=== PATIENT | female | born 1995 | race Caucasian/White ===

== ENCOUNTER 2019-12-08 17:33 | Emergency (ER) | payer OTHER, SELFPAY ==
--- NOTE | ~2019-12-08 | US_ITS ---
EXAMINATION: US OB <=14 wk fetus w TV DATE: 12/08/2019 19:15 INDICATION: Vaginal bleeding TECHNIQUE: Real-time transabdominal and transvaginal obstetric ultrasound. FINDINGS: No prior studies for comparison. The uterus measures 7.9 x 4.4 x 5.2 cm.. No intrauterine gestational sac or pole identified. En dometrium measures 8 mm. Ovaries are within normal limits without significant solid or cystic mass. N o free fluid in the pelvis. IMPRESSION: 1. Unremarkable pelvic ultrasound. No evidence for intrauterine . Differential diagnosis inc ludes very early intrauterine , ectopic and failed . Recommend follow-up with serial quantitative beta-hCG levels and ultrasound as clinically indicated. Reviewed, dictated and finalized at location [facility]. IMPRESSION: 1. Unremarkable pelvic ultrasound. No evidence for intrauterine . Diff erential diagnosis includes very early intrauterine , ectopic pregnanc y and failed . Recommend follow-up with serial quantitative beta-hCG l evels and ultrasound as clinically indicated.
[2019-12-08 17:35] VITALS: BP 125/56; PULSE 71; RESP 18; TEMP 37; O2SAT 100
--- NOTE | 2019-12-08 17:57 | ED.FEMALEGU ---
HPI - Female Genitourinary General Chief complaint: Vaginal Bleeding <Gumaro Beasley MD - Last Filed: 12/08/19 18:06> Stated complaint: 5 weeks preg, bleeding <Gumaro Beasley MD - Last Filed: 12/08/19 18:06> Time Seen by Provider: 12/08/19 17:48 <Gumaro Beasley MD - Last Filed: 12/08/19 18:06> History of Present Illness HPI Narrative: female at 5 1/2 weeks gestation by LMP presents c/o vaginal bleeding. She reports a small amount of dark red blood from the vagina. She has not required a pad. She also has moderate pelvic cramping. She has not had an OB appointment or US yet this . <Gumaro Beasley MD - Last Filed: 12/08/19 18:06> Related Data Home medications: Home Medications Medication Instructions Recorded Confirmed No Home Medications 12/08/19 12/08/19 <Gumaro Beasley MD - Last Filed: 12/08/19 18:06> Allergies/Adverse reactions: Allergies Allergy/AdvReac Type Severity Reaction Status Date / Time ciprofloxacin [From Cipro] Allergy Swelling Verified 12/08/19 17:42 of Lip/Tongue/Throat Penicillins Allergy Hives Verified 12/08/19 17:42 <Gumaro Beasley MD - Last Filed: 12/08/19 18:06> Review of Systems Review of Systems: All systems reviewed & are unremarkable except as noted in HPI and below <Gumaro Beasley MD - Last Filed: 12/08/19 18:06> Cardiovascular: Cardiovascular: Denies chest pain <Gumaro Beasley MD - Last Filed: 12/08/19 18:06> Respiratory: Respiratory: Denies dyspnea <Gumaro Beasley MD - Last Filed: 12/08/19 18:06> Gastrointestinal: Gastrointestinal: Reports abdominal pain, Denies constipation, Denies diarrhea, Denies nausea and Denies vomiting <Gumaro Beasley MD - Last Filed: 12/08/19 18:06> Genitourinary: Genitourinary: Reports abnormal vaginal bleeding and Denies dysuria <Gumaro Beasley MD - Last Filed: 12/08/19 18:06> Musculoskeletal: Musculoskeletal: Denies back pain <Gumaro Beasley MD - Last Filed: 12/08/19 18:06> Neurologic: Denies dizziness <Gumaro Beasley MD - Last Filed: 12/08/19 18:06> [facility] Social History Social History: Social History Gender identity (if verbalized by the patient): Female <Gumaro Beasley MD - Last Filed: 12/08/19 18:06> Exam Const: General: healthy appearing, no acute distress and alert <Gumaro Beasley MD - Last Filed: 12/08/19 18:06> Orientation/consciousness: patient oriented x3 <Gumaro Beasley MD - Last Filed: 12/08/19 18:06> HENMT: Head: normal to inspection <Gumaro Beasley MD - Last Filed: 12/08/19 18:06> Neck: Neck: normal visual inspection and no lymphadenopathy <Gumaro Beasley MD - Last Filed: 12/08/19 18:06> Chest: Chest palpation & inspection: no tenderness <Gumaro Beasley MD - Last Filed: 12/08/19 18:06> Resp: Effort & Inspection: normal respiratory effort <Gumaro Beasley MD - Last Filed: 12/08/19 18:06> Auscultation: clear to auscultation bilaterally, no rales, no rhonchi and no wheezes <Gumaro Beasley MD - Last Filed: 12/08/19 18:06> Cardio: Jugular venous distension: no JVD <Gumaro Beasley MD - Last Filed: 12/08/19 18:06> Rate: regular rate <Gumaro Beasley MD - Last Filed: 12/08/19 18:06> Rhythm: regular rhythm <Gumaro Beasley MD - Last Filed: 12/08/19 18:06> Heart sounds: no murmurs <Gumaro Beasley MD - Last Filed: 12/08/19 18:06> GI: Inspection: non-distended <Gumaro Beasley MD - Last Filed: 12/08/19 18:06> GI Palp: Yes Soft to palpation and Yes Tenderness to palpation present (GI) (suprapubic tenderness) <Gumaro Beasley MD - Last Filed: 12/08/19 18:06> Skin: General skin exam: normal color <Gumaro Beasley MD - Last Filed: 12/08/19 18:06> Neuro: General: patient oriented x3 and moves all extremities <Gumaro Beasley MD - Last Filed: 12/08/19 18:06
[2019-12-08 18:34] LABS: Basophils Percent Auto 0.3 % (0.2-1.2); Eosinophils Absolute Auto 0.2 K/mm3 (0-0.3); Eosinophils Percent Auto 2.7 % (0-4.4); Hematocrit 35.8 % (37.0-47.0); Hemoglobin 12.1 g/dL (12.0-15.0); Immature Granulocyte Absolute 0.01 K/mm3 (0.00-0.031); Immature Granulocyte Percent A 0.1 % (0-0.5); Lymphocytes Absolute Auto 2.25 K/mm3 (0.9-3.2); Lymphocytes Percent Auto 33.7 % (18.3-44.2); Mean Corpuscular HGB Conc 33.8 g/dl (32-36); Mean Corpuscular Hemoglobin 28.6 pg (26-34); Mean Corpuscular Volume 84.6 fl (80-100); Mean Platelet Volume 11.6 fl (7.4-10.4); Monocytes Absolute Auto 0.4 K/mm3 (0.1-0.6); Monocytes Percent Auto 6.1 % (2.6-8.5); Neutrophils Absolute Auto 3.8 K/mm3 (1.3-6.7); Neutrophils Percent Auto 57.1 % (45.5-73.1); Platelet Count Result 189 k/mm3 (150-375); Red Blood Count 4.23 M/mm3 (4.2-5.4); Red Cell Distribution Width 13.5 % (11.5-14.5); White Blood Count 6.7 K/mm3 (4.5-10.0)
[2019-12-08 18:46] LABS: Alanine Aminotransferase 22 U/L (4-35); Albumin Level 4.2 g/dL (3.5-5.1); Alkaline Phosphatase 39 U/L (38-126); Anion Gap 13.6 mmol/L (7-16); Aspartate Amino Transferase 27 U/L (14-36); Bilirubin,Total 0.1 mg/dL (0.2-1.3); Calcium 8.9 mg/dL (8.4-10.2); Carbon Dioxide 23 mmol/L (22-30); Chloride 107 mmol/L (98-107); Estimated CRCL calculation 88 ml/min; Estimated Glomerular Filt Rate > 60; Glucose 97 mg/dL (65-105); Potassium 3.6 mmol/L (3.4-5.0); Sodium 140 mmol/L (137-145)
[2019-12-08 18:53] LABS: Add Urine Microscopic? YES; Appearance Urine Clear (Clear); Bilirubin Urine Negative (Negative); Blood Urine 1+ (Negative); Color Urine Colorless (Yellow); Glucose Urine UA Negative (Negative); Ketones Urine Negative (Negative); Leukocyte Esterase Ur Negative LEU/UL (Negative); Nitrate Urine Negative (Negative); Protein Urine Negative (Negative); RBC Urine 0-2 /hpf (0-2); Squamous Epithelial Cell Urine Rare /hpf (Few); Urobilinogen Urine Negative mg/dL (<2.0)
[2019-12-08 18:54] LABS: Specific Grav Ur 1.003 (1.001-1.035)
[2019-12-08 19:02] LABS: Beta HCG Quantitative 173.54 mIU/ML
--- NOTE | 2019-12-08 19:21 | PC.NURSE ---
Report received from NAKUL Sung. Assumed care of patient at this time.
[2019-12-08 19:32] LABS: Blood Urea Nitrogen < 2 mg/dL (7-17)
== END 2019-12-08 19:56 | disposition home or self-care (01) ==
PROVIDERS: Emergency Medicine; Emergency Provider Emergency Medicine
DX: O02.1 Missed abortion (principal)
CPT/HCPCS: 36415; 76801; 76817; 80053; 81001; 84702; 85025; 85461; 99284

== ENCOUNTER 2020-09-08 05:58 | Inpatient (IN) | payer OTHER, SELFPAY ==
[2020-09-08] VITALS (87 sets, daily range): BP systolic 82–132; BP diastolic 37–88; PULSE 57–118; RESP 18; TEMP 36.3–36.9; O2SAT 92–100; BMI 30.4
--- NOTE | 2020-09-08 06:28 | LDADM ---
This patient, Alysha Edge, was admitted to Labor/Delivery/Recovery 104 on 09/08/20 at 05:58. Plans for labor, pain management and were discussed with patient. Patient/family oriented to hospital policies and general routines including ID bracelet, bed and alarms, visiting hours, pain management, procedures, bathroom and other care routines, personal items, smoking policy, room service/diet and guest tray routines, security routines, call light, and visiting hours. Patient/Family are encouraged to report perceived risks to care and to ask questions if they do not understand what they are told or what they should do. See OBIX for further documentation.
[2020-09-08 07:07] LABS: Basophils Percent Auto 0.4 % (0.2-1.2); Eosinophils Absolute Auto 0.1 K/mm3 (0-0.3); Eosinophils Percent Auto 1.5 % (0-4.4); Hemoglobin 9.4 g/dL (12.0-15.0); Immature Granulocyte Absolute 0.04 K/mm3 (0.00-0.031); Immature Granulocyte Percent A 0.4 % (0-0.5); Lymphocytes Absolute Auto 2.36 K/mm3 (0.9-3.2); Lymphocytes Percent Auto 24.5 % (18.3-44.2); Mean Corpuscular HGB Conc 33.6 g/dl (32-36); Mean Corpuscular Hemoglobin 28.6 pg (26-34); Mean Corpuscular Volume 85.1 fl (80-100); Mean Platelet Volume 9.6 fl (7.4-10.4); Monocytes Absolute Auto 0.6 K/mm3 (0.1-0.6); Monocytes Percent Auto 6.2 % (2.6-8.5); Neutrophils Absolute Auto 6.5 K/mm3 (1.3-6.7); Platelet Count Result 215 k/mm3 (150-375); Red Blood Count 3.29 M/mm3 (4.2-5.4); Red Cell Distribution Width 14.3 % (11.5-14.5); White Blood Count 9.6 K/mm3 (4.5-10.0)
[2020-09-08] MEDS: OXYTOCIN 30 UNITS/NS 500 ML 30 UNITS/500 ML BAG IV CONT (07:15)
[2020-09-08] MEDS: LACTATED RINGERS 1,000 ML 125 ML IV CONT ×3 (07:15→15:03)
--- NOTE | 2020-09-08 07:25 | WPDHPUPDATE1 ---
History and Physical Update Update Date/Time: 09/08/20 07:25 25 yo at 39w0d who presents for elective IOL. Pt denies any regular contractions, leakage of fluid or vaginal bleeding. She endorses good movement. Her has been uncomplicated thus far. A/P 25 yo at 39w0d who presents for elective IOL admit to L&D routine admission orders Rh+ GBS neg cvx 1.5/50/-3 AROM for scant clear fluid FHT cat 1 Will augment with pitocin if necessary continuous EFM History and Physical has been reviewed, including an updated exam of the patient. There are NO changes in the patient's condition. Risks, benefits, and alternatives have been discussed and questions answered. Patient agrees to proceed with procedure.
[2020-09-08 07:56] LABS: HIV 1/2 Ab P24 Ag Result Negative (Negative)
--- NOTE | 2020-09-08 14:28 | WPDANESEPPF ---
Anes - Initial Pre Proc Eval Date/Time: 09/08/20 14:28 Surgeon: Samuel Mujica MD Pre Op Diagnosis: Induction of labor Patient Data Age: 25 Gender: F Height: 5 ft Weight: 70.7 kg Last Vital Signs Temp 36.8 C 09/08/20 11:55 Pulse 83 09/08/20 14:28 BP 98/47 L 09/08/20 14:28 Pulse Ox 98 09/08/20 14:28 Allergies Allergy/AdvReac Type Severity Reaction Status Date / Time ciprofloxacin [From Cipro] Allergy Swelling Verified 09/08/20 06:24 Penicillins Allergy Other Verified 09/08/20 06:24 Home Medications Medication Instructions Recorded Confirmed Type ferrous sulfate 325 mg PO DAILY 08/24/20 09/08/20 History Laboratory Tests 09/08/20 09/08/20 09/08/20 06:24 06:24 06:24 WBC 9.6 K/mm3 K/mm3 (4.5-10.0) RBC 3.29 M/mm3 L M/mm3 (4.2-5.4) Hgb 9.4 g/dL L g/dL (12.0-15.0) Hct 28.0 % L % (37.0-47.0) MCV 85.1 fl fl (80-100) MCH 28.6 pg pg (26-34) MCHC 33.6 g/dl g/dl (32-36) RDW 14.3 % % (11.5-14.5) Plt Count 215 k/mm3 k/mm3 (150-375) MPV 9.6 fl fl (7.4-10.4) Immature Gran % (Auto) 0.4 % % (0-0.5) Neut % (Auto) 67.0 % % (45.5-73.1) Lymph % (Auto) 24.5 % % (18.3-44.2) [place] % (Auto) 6.2 % % (2.6-8.5) Eos % (Auto) 1.5 % % (0-4.4) Baso % (Auto) 0.4 % % (0.2-1.2) Lymph # (Auto) 2.36 K/mm3 K/mm3 (0.9-3.2) [place] # (Auto) 0.6 K/mm3 K/mm3 (0.1-0.6) Eos # (Auto) 0.1 K/mm3 K/mm3 (0-0.3) Baso # (Auto) 0.0 K/mm3 K/mm3 (0.0-0.1) Abs Immat Gran (auto) 0.04 K/mm3 H K/mm3 (0.00-0.031) Absolute Neuts (auto) 6.5 K/mm3 K/mm3 (1.3-6.7) Absolute Nucleated RBC 0.0 K/mm3 K/mm3 (0.0-0.012) Nucleated RBC % 0.0 % % (0.0-0.2) RPR Pending HIV 1&2 Ab/P24 Ag 4thGn Negative (Negative) Blood Type Antibody Screen 09/08/20 06:24 WBC RBC Hgb Hct MCV MCH MCHC RDW Plt Count MPV Immature Gran % (Auto) Neut % (Auto) Lymph % (Auto) [place] % (Auto) Eos % (Auto) Baso % (Auto) Lymph # (Auto) [place] # (Auto) Eos # (Auto) Baso # (Auto) Abs Immat Gran (auto) Absolute Neuts (auto) Absolute Nucleated RBC Nucleated RBC % RPR HIV 1&2 Ab/P24 Ag 4thGn Blood Type A Positive Antibody Screen Negative Patient hx anesthesia problems: none Family hx anesthesia problems: none PMFSH Past Medical History Medical History Anemia Family History Family History Other Unknown family medical history Social History Social History Years smoked: 10 Smoking status: Current every day smoker Tobacco type: cigarettes Substance use: never Spiritual care concerns: No Anes - Eval Final PreProcedure Day of Procedure 09/08/20 14:28 Patient weight: overweight Neurological: alert and oriented ASA classification: III Emergent: no Anesthetic plan: proceed Anesthesia type and monitoring: regional epidural and standard monitoring Informed Consent: The patient's anesthetic plan and its attendant risks and benefits were discussed with the patient/family/POA. Questions were solicited and answers provided to the satisfaction of the patient/family/POA.
[2020-09-08] MEDS: SODIUM CHLORIDE 0.9% IV 300 ML 600 ML I-UTERINE (14:56)
--- NOTE | 2020-09-08 17:01 | PM.OBPRVD ---
OB - Delivery Note Procedure Procedure: Patient pushed for a spontaneous vaginal delivery. The fetus was noted to have a nuchal cord x1 that was delivered through. The fetus was delivered atraumatically and placed on the maternal abdomen. The cord was clamped and cut after 1 minute of life. The cord was double clamped and cut and a segment of cord was collected for cord gases. Cord blood was collected for blood type and Coomb's testing. The placenta delivered spontaneously and was noted to be intact. The perineum was inspected and there were no lacerations noted. The uterus was firm and good hemostasis was noted. The patient and fetus were stable in the delivery room. Induction method: per pitocin protocol Delivery augmentation: rupture of membranes Delivery monitor: external FHT Route of delivery: Episiotomy description: None Laceration Description: None Specimen: No Quantitative Blood Loss (ml): 250 Anesthesia type: Epidural Disposition: floor () Complications: No immediate complications [place] Baby Date of : 09/08/20 Time of : 16:51 Weeks of gestation at delivery: 39 Infant gender: Male Weight (pounds): 6 Weight (ounces): 3 presentation: vertex position: Right Occiput Anterior Placenta delivery description: Spontaneous cord vessel description: Nuchal Cord score one minute: 8 score five minutes: 9
[2020-09-08] MEDS: BENZOCAINE 20% AER SPR (*SP) 56 GM CAN 1 SPRAY TOPICAL (18:54)
[2020-09-08] MEDS: WITCH HAZEL 40 PADS 1 PAD TOPICAL (18:54)
--- NOTE | 2020-09-08 20:37 | OBPPTRN ---
Addendum entered by Harini Jacobs RN 09/08/20 20:38: Arrival to room on 09/08/20 @ 1915. Original Note: Patient transferred to post room #291 via wheelchair. Support person present. Oriented to unit, room, information board, rooming in, admission packet and security measures. Patient verbalizes understanding.
[2020-09-08] MEDS: DOCUSATE SODIUM 100 MG CAPSULE PO (23:45)
[2020-09-09] MEDS: TETANUS,DIPHTHERIA,AC PERTUSSIS ADULT (0.5 ML) BOOSTRIX IM (03:51)
[2020-09-09 04:00] VITALS: BP 101/59; PULSE 65; RESP 18; TEMP 36.8; O2SAT 100
[2020-09-09] MEDS: LANOLIN (LANSINOH) 7.5 GM CREAM 1 APPLIC TOPICAL (04:26)
[2020-09-09 04:58] LABS: Hematocrit 26.1 % (37.0-47.0); Hemoglobin 8.6 g/dL (12.0-15.0)
--- NOTE | 2020-09-09 07:16 | PM.OBDSVD ---
DS: Admitting Diagnosis Admitting Diagnosis Admitting Diagnosis: eaton intrauterine at term OB - DS: Summary OB Procedures : None OB Procedures Intrapartum: Spontaneous Vag Delivery OB Procedures: : None Status at Discharge Functional status at discharge: independent ambulation Overall status at discharge: patient is back to baseline Time Spent with Patient Time attestation: Total time spent providing and/or coordinating discharge services: Time spent: Less than 30 minutes Exam Const: General: comfortable and no acute distress Resp: Effort & Inspection: normal respiratory effort Auscultation: clear to auscultation bilaterally Cardio: Rate: regular rate GI: GI Palp: Yes Soft to palpation Auscultation: normal bowel sounds Other: Fundus firm below umbilicus Psych: Appearance: grossly normal Mental Status: mental status grossly normal Affect: normal affect DS: Data Data Completed and Pending Labs on day of discharge: Labs from last 24 hours 09/09/20 09/08/20 09/08/20 03:40 06:24 06:24 Hgb 8.6 L Hct 26.1 L HIV 1&2 Ab/P24 Ag 4thGn Negative Blood Type A Positive Antibody Screen Negative Discharge Plan Discharge Discharging Clinician: Samuel Muijca Patient Disposition: Home, Self-Care Activity: as tolerated and pelvic rest Diet: regular Patient Instructions: Antibiotic Form, Vaginal Delivery (DC) Stand Alone Forms: General Discharge Information Follow-up/Referrals: Samuel Mujica MD [Physician] - Discharge Medications: New acetaminophen [Mapap (acetaminophen)] 325 mg Tablet 650 mg PO Q6H PRN (Reason: Mild Pain (1-3) Or Headache) Qty: 30 RF: 0 ibuprofen 600 mg Tablet 600 mg PO Q6H PRN (Reason: Cramping) Qty: 30 RF: 0 Continued ferrous sulfate 325 mg (65 mg iron) Tablet 325 mg PO DAILY RF: 0 Date of admission: 09/08/20 05:58 Primary Care Provider: PHYSICIAN,[employer] PROGRAM REPRESENTATIVE Admitting Provider: Samuel Mujica Attending physician on admission: Samuel Mujica Condition: Stable
[2020-09-09 08:05] VITALS: BP 105/62; PULSE 56; RESP 16; TEMP 36.6; O2SAT 100
[2020-09-09] MEDS: DOCUSATE SODIUM 100 MG CAPSULE PO (08:25)
[2020-09-09] MEDS: MULTIVIT/MIN/PREN/FOL AC/IRON TABLET 1 TAB PO (08:25)
[2020-09-09] MEDS: POLYSACCHARIDE IRON COMPLEX 150 MG CAPSULE PO (08:25)
--- NOTE | 2020-09-09 09:00 | PC.NURSE ---
Mother called out for assist with feeding. Consulted with patient, mother reports has fed well since . Mother has nipple discomfort with latch and during the feeding. Reviewed nipple care of lanolin, warm compresses several as needed. Reviewed infant feeding cues, frequencies, duration of feedings, feeding elimination flow sheet, and signs of adequate intake. Demonstrated stimulation techniques to wake for feeding. Assisted with to breast. Reviewed positioning/alignment in football, holding breast in C hold and guided asymmetrical latch on. Mother allows infant to latch shallow to nipple. Discussed assist with latch and holding breast. It appears infant has a slightly tight tongue. With mother holding breast and bring on quickly while mouth is open wide, a deeper latch is obtained. Suggested mother hold breast during entire feeding. Infant nursed eagerly, with steady draws and frequent swallowing noted. Reviewed signs of a correct latch, effective nursing and suck swallow ratio. Infant was able to maintain latch. Mother reported tenderness at times, had slipped to shallow latch. Demonstrated how to adjust latch more deeply while feeding. Mother quickly reports she can feel is latched more deeply and has minimal tenderness. Suggested to stimulate while feeding to keep infant awake and nursing effectively for increased stimulation,increased intake and to assist with maintaining deep latch. Instructed mother to call out for RN assistance if she is unable to latch for feeding or she has discomfort with nursing.
--- NOTE | 2020-09-09 09:10 | WPDANLDPN2 ---
Anes-Prog Note L&D Date/Time: 09/09/20 09:10 Comfortable throughout: labor and delivery Neuraxial method: epidural Epidural/Spinal procedure site: clean & non-tender Neuro status: Neuro function grossly intact. Cardiovascular status: normal Respiratory status: normal Airway patency: baseline Mental status: baseline Post-Op hydration status: normal Vital Signs: Last Vital Signs Temp 36.6 C 09/09/20 08:05 Pulse 56 L 09/09/20 08:05 Resp 16 09/09/20 08:05 BP 105/62 09/09/20 08:05 Pulse Ox 100 09/09/20 08:05 Pain score (VAS): 10 I/O: Intake & Output 09/08/20 09/09/20 09/09/20 23:59 07:59 15:59 Intake Total 2300 Balance 2300 Post-procedural complaints: none Patient feedback: Patient satisfied with anesthetic care.
[2020-09-09 12:05] VITALS: BP 102/62; PULSE 58; RESP 16; TEMP 36.7; O2SAT 100
[2020-09-09 12:30] VITALS: BP 114/68; PULSE 58; PULSE 72; RESP 14; RESP 16; TEMP 37.1; O2SAT 100
[2020-09-09 13:59] LABS: Rapid Plasma Reagin Non-Reactive (NonReactive)
--- NOTE | 2020-09-09 15:08 | PC.NURSE ---
1430 Mother called out for assist with feeding. Mother now reports latch is painful, left nipple has small abrasion to center from possible shallow latch. Mother has in football with chin to chest and shallow latch. With mother holding breast and bringing on quickly while 's mouth is open wide, a deeper latch is obtained. Suggested mother hold breast during entire feeding. Demonstrated how to adjust latch more deeply while feeding and maintaining C hold nursed eagerly, with steady draws and frequent swallowing noted. Reviewed signs of a correct latch, effective nursing and suck swallow ratio. Infant was able to maintain latch. Suggested to stimulate infant while feeding to keep infant awake and nursing effectively for increased stimulation,increased intake and to assist with maintaining deep latch. Instructed mother to call out for RN assistance if she is unable to latch for feeding or she has discomfort with nursing.
[2020-09-09 16:00] VITALS: BP 121/72; PULSE 68; PULSE 72; RESP 16; RESP 20; TEMP 37.1; O2SAT 100
[2020-09-11 11:14] VITALS: BP 120/66; PULSE 78; RESP 20; TEMP 37.2; O2SAT 99
== END 2020-09-09 18:54 | disposition home or self-care (01) | DRG 560 ==
LOC: ANHLDR 06:01 → ANHOB2 19:17
PROVIDERS: Admitting Provider Student in an Organized Health Care Education/Training Program; Visit Provider Student in an Organized Health Care Education/Training Program
DX: O76 Abnormality in fetal heart rate and rhythm complicating labor and delivery (principal); O69.81X0 Labor and delivery complicated by cord around neck, without compression, not applicable or unspecified; O99.02 Anemia complicating childbirth; D64.9 Anemia, unspecified; Z3A.39 39 weeks gestation of pregnancy; Z37.0 Single live birth
CPT/HCPCS: 36415; 85014; 85018; 85025; 86592; 86703; 86850; 86900; 86901; 90715; A9270; G0432; J2590; J2795; J7030; J7120

== ENCOUNTER 2021-05-28 10:49 | Outpatient (CLI) | payer OTHER, SELFPAY ==
--- NOTE | ~2021-05-28 | US_ITS ---
US OB <=14 wk fetus w TV DATE: 05/28/2021 11:34 INDICATION: Confirm TECHNIQUE: Real-time imaging via transabdominal and transvaginal approaches COMPARISON: None FINDINGS: The uterus measures 8.8 cm height, 4.7 cm anteroposterior and 6.1 cm transverse dimension. Possible very early gestational sac within the endometrial cavity, with yolk sac but no definite feta l pole. Right ovary 2.7 x 1.8 x 1.7 cm with 8 x 6 mm cyst. Left ovary 1.7 x 1.3 x 1.5 cm. There is vascular flow to both ovaries. No pelvic mass or abnormal pelvic free fluid collection is detected. IMPRESSION: Possible very early intrauterine gestational sac without identification of definite pole; recommend follow-up ultrasound imaging. Reviewed, dictated and finalized at [facility]. Reviewed, dictated and finalized at location [facility]. [employer]IC [employer]ON[employer] IMAGING DIRECTOR IMPRESSION: Possible very early intrauterine gestational sac without identifica tion of definite pole; recommend follow-up ultrasound imaging.
== END 2021-05-28 10:50 | disposition home or self-care (01) ==
LOC: ANHIMG 10:50
PROVIDERS: Visit Provider Student in an Organized Health Care Education/Training Program
DX: Z36.9 Encounter for antenatal screening, unspecified (principal); Z3A.00 Weeks of gestation of pregnancy not specified
CPT/HCPCS: 76801; 76817

== ENCOUNTER 2022-01-21 05:00 | Inpatient (IN) | payer OTHER, SELFPAY ==
[2022-01-21] VITALS (98 sets, daily range): BP systolic 50–132; BP diastolic 27–106; PULSE 52–256; RESP 16–18; TEMP 36.1–36.9; O2SAT 86–100; BMI 30.9
[2022-01-21 05:44] LABS: Basophils Percent Auto 0.3 % (0.2-1.2); Eosinophils Absolute Auto 0.1 K/mm3 (0-0.3); Eosinophils Percent Auto 1.4 % (0-4.4); Hematocrit 27.8 % (37.0-47.0); Hemoglobin 8.7 g/dL (12.0-15.0); Immature Granulocyte Absolute 0.04 K/mm3 (0.00-0.031); Immature Granulocyte Percent A 0.4 % (0-0.5); Lymphocytes Percent Auto 25.4 % (18.3-44.2); Mean Corpuscular HGB Conc 31.3 g/dl (32-36); Mean Corpuscular Hemoglobin 27.4 pg (26-34); Mean Corpuscular Volume 87.7 fl (80-100); Mean Platelet Volume 9.9 fl (7.4-10.4); Monocytes Absolute Auto 0.7 K/mm3 (0.1-0.6); Monocytes Percent Auto 6.5 % (2.6-8.5); Neutrophils Absolute Auto 6.8 K/mm3 (1.3-6.7); Platelet Count Result 225 k/mm3 (150-375); Red Blood Count 3.17 M/mm3 (4.2-5.4); White Blood Count 10.2 K/mm3 (4.5-10.0)
[2022-01-21] MEDS: LACTATED RINGERS 1,000 ML 125 ML IV CONT (05:45)
[2022-01-21] MEDS: OXYTOCIN 30 UNITS/NS 500 ML 30 UNITS/500 ML BAG IV CONT (05:45)
--- NOTE | 2022-01-21 05:52 | LDADM ---
This patient, Alysha Edge, was admitted to Labor/Delivery/Recovery 108 on 01/21/22 at 05:00. Plans for labor, pain management and were discussed with patient. Patient/family oriented to hospital policies and general routines including ID bracelet, bed and alarms, visiting hours, pain management, procedures, bathroom and other care routines, personal items, smoking policy, room service/diet and guest tray routines, security routines, and visiting hours. Patient/Family are encouraged to report perceived risks to care and to ask questions if they do not understand what they are told or what they should do. See OBIX for further documentation.
--- NOTE | 2022-01-21 06:39 | PM.IMHP ---
H&P: HPI History of Present Illness Date/Time: 01/21/22 06:39 Chief Complaint: Suction of labor at term Narrative: so a 26-year-old 5 para 3013 last menstrual 04/05/2021, EDC is 01/25/2022, presents at 39 half weeks gestation for induction of labor. She does desire permanent sterilization as well. She has a 7 week ultrasound confirming dates. Risks and benefits of induction reviewed [facility] Past Medical History Medical History Anemia Family History Family History Other Unknown family medical history Social History Social History Years smoked: 10 Smoking status: Light tobacco smoker Tobacco type: cigarettes Second hand tobacco smoke exposure: Yes Substance use: never Gender identity (if verbalized by the patient): Female Spiritual care concerns: No Meds Home Medications and Allergies Home Medications Medication Instructions Recorded Confirmed Type No Home Medications 12/08/19 12/08/19 History acetaminophen 325 mg tablet (Mapap 650 mg PO Q6H PRN Mild Pain (1-3) 09/09/20 01/21/22 Rx (acetaminophen)) Or Headache #30 tabs Allergies Allergy/AdvReac Type Severity Reaction Status Date / Time ciprofloxacin [From Cipro] Allergy Swelling Verified 12/31/21 15:44 Penicillins Allergy Other Verified 12/31/21 15:44 Vital Signs Vital Signs - 24 hr 01/21/22 05:50 01/21/22 05:58 01/21/22 06:30 Pulse Rate 68 55 L Blood Pressure 105/71 104/66 Oxygen Delivery Room Air Exam Const: General: cooperative, healthy appearing and comfortable Nutritional Appearance: average body habitus Orientation/consciousness: oriented to person, oriented to place and oriented to time Cardio: Rate: regular rate Rhythm: regular rhythm Heart sounds: S1 normal heart sound present and S2 normal heart sound present GI: Inspection: normal to inspection Auscultation: normal bowel sounds : External Female Exam: normal external appearance Speculum Exam - Vagina: normal appearance of the vagina Speculum Exam - Cervix: normal appearance of the cervix ( cervix 3/80/1. AROM clear. FHT is reassuring) Bimanual exam- vagina & uterus: enlarged H&P: Results Labs Labs: Short CBC 01/21/22 Range/Units 05:36 WBC 10.2 H (4.5-10.0) K/mm3 Hgb 8.7 L (12.0-15.0) g/dL Hct 27.8 L (37.0-47.0) % Plt Count 225 (150-375) k/mm3 Assessment and Plan Assessment and plan (1) Term : Code(s): Z34.90 - Encounter for supervision of normal , unspecified, unspecified trimester Status: Acute Plan medical induction of labor. Spontaneous vaginal delivery is expected. She has an epidural candidate. She does desire permanent sterilization
--- NOTE | 2022-01-21 11:18 | WPDANESEPP ---
Anes - Eval Pre Procedure Procedure: Labor Epidural Date/Time: 01/21/22 11:18 Surgeon: Duarte Preop Diagnosis: Labor Pain Pre Op Diagnosis: IOL Patient Data Age: 26 Gender: F Height: 1.52 m Weight: 72 kg Last Vital Signs Temp 36.3 C L 01/21/22 10:37 Pulse 105 H 01/21/22 11:15 BP 93/44 L 01/21/22 11:15 Pulse Ox 100 01/21/22 11:16 O2 Del Method Room Air 01/21/22 05:50 Allergies Allergy/AdvReac Type Severity Reaction Status Date / Time ciprofloxacin [From Cipro] Allergy Swelling Verified 12/31/21 15:44 Penicillins Allergy Other Verified 12/31/21 15:44 Home Medications Medication Instructions Recorded Confirmed Type No Home Medications 12/08/19 12/08/19 History acetaminophen 325 mg tablet (Mapap 650 mg PO Q6H PRN Mild Pain (1-3) 09/09/20 01/21/22 Rx (acetaminophen)) Or Headache #30 tabs Laboratory Tests 01/21/22 01/21/22 01/21/22 05:36 05:36 05:36 WBC 10.2 K/mm3 H K/mm3 (4.5-10.0) RBC 3.17 M/mm3 L M/mm3 (4.2-5.4) Hgb 8.7 g/dL L g/dL (12.0-15.0) Hct 27.8 % L % (37.0-47.0) MCV 87.7 fl fl (80-100) MCH 27.4 pg pg (26-34) MCHC 31.3 g/dl L g/dl (32-36) RDW 15.0 % H % (11.5-14.5) Plt Count 225 k/mm3 k/mm3 (150-375) MPV 9.9 fl fl (7.4-10.4) Immature Gran % (Auto) 0.4 % % (0-0.5) Neut % (Auto) 66.0 % % (45.5-73.1) Lymph % (Auto) 25.4 % % (18.3-44.2) [place] % (Auto) 6.5 % % (2.6-8.5) Eos % (Auto) 1.4 % % (0-4.4) Baso % (Auto) 0.3 % % (0.2-1.2) Lymph # (Auto) 2.60 K/mm3 K/mm3 (0.9-3.2) [place] # (Auto) 0.7 K/mm3 H K/mm3 (0.1-0.6) Eos # (Auto) 0.1 K/mm3 K/mm3 (0-0.3) Baso # (Auto) 0.0 K/mm3 K/mm3 (0.0-0.1) Abs Immat Gran (auto) 0.04 K/mm3 H K/mm3 (0.00-0.031) Absolute Neuts (auto) 6.8 K/mm3 H K/mm3 (1.3-6.7) Absolute Nucleated RBC 0.0 K/mm3 K/mm3 (0.0-0.012) Nucleated RBC % 0.0 % % (0.0-0.2) RPR Pending Blood Type A Positive Antibody Screen Negative Patient hx anesthesia problems: none Family hx anesthesia problems: none Results Review: All pre-operative results and documents have been reviewed as part of the pre-operative evaluation. [facility] Past Medical History Medical History Anemia Family History Family History Other Unknown family medical history Social History Social History Years smoked: 10 Smoking status: Light tobacco smoker Tobacco type: cigarettes Second hand tobacco smoke exposure: Yes Substance use: never Gender identity (if verbalized by the patient): Female Spiritual care concerns: No Exam Day of Procedure 01/21/22 11:18 Patient weight: normal Heart: regular rate and rhythm Lungs: normal air movement Airway: Mallampati scale class II Neurological: alert and oriented
[2022-01-21 13:46] LABS: Rapid Plasma Reagin Non-Reactive (NonReactive)
--- NOTE | 2022-01-21 14:08 | PM.OBPRVD ---
OB - Delivery Note Procedure Delivery date: 01/21/22 Procedure: mil Induction method: AROM Delivery augmentation: Pitocin Delivery monitor: External FHT Route of delivery: Episiotomy description: None Laceration Description: None Quantitative Blood Loss (ml): 59 Anesthesia type: Epidural Disposition: PACU [place] Baby Date of : 01/21/22 Time of : 14:02 Weeks of gestation at delivery: 39 gender: Female presentation: vertex position: Right Occiput Anterior Placenta delivery description: Spontaneous Cord Vessel Description: 3 Vessels, Nuchal Cord (x 2), Loose and Delayed Cord Clamping score one minute: 8 score five minutes: 9
[2022-01-21] MEDS: OXYTOCIN 30 UNITS/NS 500 ML 30 UNITS/500 ML BAG 125 UNITS IV CONT (14:35)
[2022-01-21] MEDS: BENZOCAINE 20% AER SPR (*SP) 56 GM CAN 1 SPRAY TOPICAL (15:55)
[2022-01-21] MEDS: WITCH HAZEL 40 PADS 1 PAD TOPICAL (15:55)
--- NOTE | 2022-01-21 16:53 | PC.NURSE ---
Report given to iva, Karina MOTA
--- NOTE | 2022-01-21 17:05 | OBPPTRN ---
Patient transferred to post room # 286 via wheelchair. Support person present. Oriented to unit, room, information board, rooming in, admission packet and security measures. Patient verbalizes understanding.
[2022-01-21] MEDS: POLYSACCHARIDE IRON COMPLEX 150 MG CAPSULE PO (21:11)
[2022-01-21] MEDS: IBUPROFEN 600 MG TABLET PO (21:11)
[2022-01-22] VITALS: BP 106/60; PULSE 72; RESP 18; TEMP 36.6
[2022-01-22] MEDS: IBUPROFEN 600 MG TABLET PO (03:02)
[2022-01-22 03:19] LABS: Hematocrit 25.1 % (37.0-47.0)
[2022-01-22 04:06] VITALS: BP 102/61; PULSE 67; RESP 18; TEMP 36.6; O2SAT 99
--- NOTE | 2022-01-22 06:58 | PM.OBPNVD ---
OB - PN: Subj Subjective Date/time seen: 01/22/22 06:58 Patient comments: no complaints and pain well controlled baby status: doing well OB - PN: Obj Data Labs CBC & Chem 7: 01/22/22 03:13 Labs: Laboratory Results - last 24 hr 01/21/22 01/21/22 01/22/22 05:36 05:36 03:13 Hgb 8.0 L Hct 25.1 L RPR Non-reactive Antibody Screen Negative OB - PN A/P Plan day: 1 Plan: routine care Time Spent With Patient Time: Total time spent is greater than 50% in coordination of care (as documented) at patient's floor/unit and/or counseling patient: Time with patient: less than 15 minutes Exam Const: General: cooperative, healthy appearing and comfortable Nutritional Appearance: average body habitus
--- NOTE | 2022-01-22 07:12 | PM.DS ---
DS: Admitting Diagnosis Discharge Date 01/22/2022 Admitting Diagnosis term in active labor DS: Discharge Diagnosis Discharge Diagnosis (1) Term : Code(s): Z34.90 - Encounter for supervision of normal , unspecified, unspecified trimester Status: Acute DS: Summary Hospital Course Reason for hospitalization: active labor at term Hospital Course: the patient was admitted in active labor term. It spontaneously ruptured prior to admission. She underwent spontaneous vaginal delivery. The procedure was unremarkable. Her 24 course was unremarkable. She remained afebrile. She was up, voiding without difficulty, ambulating, generally without complaints. Time Spent with Patient Time attestation: Total time spent providing and/or coordinating discharge services: DS: Data Data Completed and Pending Labs on day of discharge: Labs from last 24 hours 01/22/22 01/21/22 03:13 05:36 Hgb 8.0 L Hct 25.1 L RPR Non-reactive Discharge Plan Discharge Attending physician on discharge: Kameron Simpson Discharging Clinician: Kameron Simpson Patient Disposition: Home, Self-Care Activity: may shower, no straining and pelvic rest Diet: heart healthy Wound Care Instructions: follow printed instructions Patient Instructions: Antibiotic Form Stand Alone Forms: General Discharge Information Follow-up/Referrals: Kameron Simpson MD [Physician] - Discharge Medications: Continued acetaminophen [Mapap (acetaminophen)] 325 mg Tablet 650 mg PO Q6H PRN (Reason: Mild Pain (1-3) Or Headache) Qty: 30 0RF No Action No Home Medications Date of admission: 01/21/22 05:00 Primary Care Provider: PHYSICIAN,[employer] WORKER Admitting Provider: Kameron Simpson Attending physician on admission: Kameron Simpson Condition: Stable
[2022-01-22 08:00] VITALS: BP 104/61; PULSE 58; RESP 16; TEMP 36.8; O2SAT 98
[2022-01-22] MEDS: DOCUSATE SODIUM 100 MG CAPSULE PO (08:14)
[2022-01-22] MEDS: POLYSACCHARIDE IRON COMPLEX 150 MG CAPSULE PO (08:14)
[2022-01-22] MEDS: MULTIVIT/MIN/PREN/FOL AC/IRON TABLET 1 TAB PO (08:14)
--- NOTE | 2022-01-22 09:03 | WPDANESPN ---
Anes - Prog Note Post-Op Date/Time: 01/22/22 09:03 Cardiovascular status: normal Respiratory status: normal Airway patency: baseline Mental status: baseline Post-Op hydration status: normal Vital Signs: Last Vital Signs Temp 36.8 C 01/22/22 08:00 Pulse 58 L 01/22/22 08:00 Resp 16 01/22/22 08:00 BP 104/61 01/22/22 08:00 Pulse Ox 98 01/22/22 08:00 O2 Del Method Room Air 01/22/22 08:00 Pain Score (VAS): 0/10 I/O: Intake & Output 01/21/22 01/22/22 01/22/22 23:59 07:59 15:59 Output Total 75 Balance -75 Laboratory Tests 01/22/22 03:13 01/21/22 01/22/22 05:36 03:13 Hgb 8.0 L Hct 25.1 L RPR Non-reactive Post-procedural complaints: none Patient Feedback: Patient satisfied with anesthetic care.
[2022-01-22 12:57] VITALS: BP 99/58; PULSE 64; RESP 16; TEMP 36.8; O2SAT 100
--- NOTE | 2022-01-22 14:07 | PC.NURSE ---
Patient was given the opportunity to view the discharge video Mother & Baby Care, The First Two Weeks and to ask questions. Patient declined viewing the video and has been given the mother/baby guide for home reference.
[2022-01-24 10:41] VITALS: BP 106/67; PULSE 73; RESP 20; TEMP 37.4; O2SAT 99
== END 2022-01-22 15:40 | disposition home or self-care (01) | DRG 560 ==
LOC: ANHLDR 05:06 → ANHOB2 17:50
PROVIDERS: Admitting Provider Obstetrics & Gynecology; Visit Provider Obstetrics & Gynecology
DX: O76 Abnormality in fetal heart rate and rhythm complicating labor and delivery (principal); F17.210 Nicotine dependence, cigarettes, uncomplicated; O99.02 Anemia complicating childbirth; O99.334 Smoking (tobacco) complicating childbirth; O69.81X0 Labor and delivery complicated by cord around neck, without compression, not applicable or unspecified; Z3A.39 39 weeks gestation of pregnancy; Z37.0 Single live birth
CPT/HCPCS: 36415; 85014; 85018; 85025; 86592; 86850; 86900; 86901; A9270; J2590; J2795; J7120

== ENCOUNTER 2022-04-15 01:32 | Day surgery (SDC) | payer OTHER, SELFPAY ==
[2022-02-18 15:11] VITALS: BMI 28.3
--- NOTE | 2022-02-18 15:16 | PC.NURSE ---
Report to the Outpatient Waiting Room, entrance under the green pavilion located off [facility], at time 0815 on date 02/25/22. OR Time: 1015. Time changes happen often and if your time is changed the preop area will call you the afternoon before. - You and your visitor will be asked to self-screen and do not enter if you have any COVID symptoms. - We encourage only one visitor and NO visitors under age 16 are allowed at this time. Your visitor will receive communication by the phone number that is given day of service. - The patient visitor is requested to social distance or may leave the building when not with patient due to restrictions. - A mask is required within the hospital. Patients may have clear liquids (water, carbonated beverages, clear teas, apple juice) until 3 hours prior to surgery with a maximum of 20 ounces. - No food from midnight until time of surgery Take the following medications with a SIP of water the morning of surgery: N/A Medications to discontinue per physician: N/A Date to take last dose: N/A Please no make-up, nail kazakh, hairspray, perfume, deodorant, or body powder the day of surgery. No jewelry (including any body piercings) or valuables the day of surgery, leave them at home. Please take a shower or bath the night before, or the morning of, surgery with an antibacterial soap. Wear comfortable, loose fitting clothing. - Jewelry must be removed prior to entering the operating room. Rings and piercings that are not removed may be cut off. - The hospital will not accept responsibility for valuables. - Please leave all valuables, including medications, at home the day of surgery. If you are going home after surgery, a licensed crew car driver must drive you home. - NO public transportation without another adult. - We recommend that an adult stay with you for 24 hours following discharge. - We also recommend that you do not drive, make important decision, drink alcoholic beverages, or take any drugs that were not prescribed by your health care provider for at least 24 hours after your discharge time. Follow any additional instructions given to you from your surgeon. If you or anyone in your household have experienced Covid symptoms in the past week, please notify your surgeon or the nurse liaison at the phone number below for possible testing. Telephone instructions given to PT - RANDA THAKKAR and asked if any additional questions and then verbalized understanding. Patient advised to call surgeon office or pre surgery nurse liaison [phone] if any additional questions.
--- NOTE | 2022-02-22 07:53 | P.HP_ITS ---
H&P: HPI History of Present Illness Date/Time: 02/22/22 07:53 Chief Complaint: Desires permanent sterilization Narrative: Sh 26-year-old multiparous patient who desires permanent sterilization. She prefers bilateral salpingectomies versus other methods and risks and benefits were reviewed in great details. She understands this to be permanent and irreversible and signed the [facility] consent form. She declined alternatives including but not exclusive of pills, patches, injections, long-acting contraceptives. She had all questions answered and asked to proceed PMFSH Past Medical History Medical History Anemia Family History Family History Other Unknown family medical history Social History Social History Years smoked: 10 Smoking status: Former smoker Tobacco type: cigarettes Second hand tobacco smoke exposure: Yes Smoking end date: 01/21/22 Alcohol intake: never Substance use: never Substance use type: does not use Living arrangements: with family Gender identity (if verbalized by the patient): Female Spiritual care concerns: No Meds Home Medications and Allergies Home Medications Medication Instructions Recorded Confirmed Type No Home Medications 02/18/22 02/18/22 History Allergies Allergy/AdvReac Type Severity Reaction Status Date / Time ciprofloxacin [From Cipro] Allergy Swelling Verified 02/18/22 15:10 Penicillins Allergy Other Verified 02/18/22 15:10 Exam Const: General: cooperative, healthy appearing, comfortable and average body habitus Orientation/consciousness: oriented to person, oriented to place and oriented to time HENMT: Head: normal to inspection Resp: Effort & Inspection: normal respiratory effort Cardio: Rate: regular rate Rhythm: regular rhythm Heart sounds: S1 normal heart sound present and S2 normal heart sound present GI: Inspection: normal to inspection : Speculum Exam - Vagina: normal appearance of the vagina Speculum Exam - Cervix: normal appearance of the cervix and Cervical os closed Bimanual exam- vagina & uterus: uterine size normal Bimanual Exam- Adnexa, other: normal adnexae Assessment and Plan Assessment and plan (1) Sterilization: Code(s): Z30.2 - Encounter for sterilization Status: Acute Plan Laparoscopic bilateral salpingectomy
--- NOTE | 2022-02-24 13:41 | P.PNAN_ITS ---
Anes - Initial Pre Proc Eval Procedure: Operation Date: 02/25/22 10:15 Proposed Procedures p Laparoscopic Bilateral Salpingectomy - Kameron Nuñez MD Date/Time: 02/24/22 13:41 Surgeon: Kameron Nuñez MD Pre Op Diagnosis: desires sterilization Patient Data Age: 26 Gender: F Height: 1.52 m Weight: 65.77 kg Allergies Allergy/AdvReac Type Severity Reaction Status Date / Time ciprofloxacin [From Cipro] Allergy Swelling Verified 02/18/22 15:10 Penicillins Allergy Other Verified 02/18/22 15:10 Home Medications Medication Instructions Recorded Confirmed Type No Home Medications 02/18/22 02/18/22 History Results Review: All pre-operative results and documents have been reviewed as part of the pre- operative evaluation. [facility] Past Medical History Medical History (Updated 02/22/22 @ 07:56 by Kameron Nuñez MD) Anemia Surgical History Surgical History (Updated 02/24/22 @ 13:41 by Sebastian Taylor DO) History of appendectomy Family History Family History Other Unknown family medical history Social History Social History Years smoked: 10 Smoking status: Former smoker Tobacco type: cigarettes Second hand tobacco smoke exposure: Yes Smoking end date: 01/21/22 Alcohol intake: never Substance use: never Substance use type: does not use Living arrangements: with family Gender identity (if verbalized by the patient): Female Spiritual care concerns: No Anes - Eval Final PreProcedure Day of Procedure 02/24/22 13:41 Patient weight: overweight Heart: regular rate and rhythm Lungs: clear to auscultation Airway: Mallampati scale class II Neurological: alert and oriented Last oral intake: >/= 8 hours ASA classification: II Emergent: no Anesthetic plan: proceed Anesthesia type and monitoring: general ETT and standard monitoring Results Review: All pre-operative results and documents have been reviewed as part of the pre- operative evaluation. Informed Consent: The patient's anesthetic plan and its attendant risks and benefits were discussed with the patient/family/POA. Questions were solicited and answers provided to the satisfaction of the patient/family/POA.
--- NOTE | 2022-02-25 06:51 | WPDHPUPDATE1 ---
History and Physical Update Update Date/Time: 02/25/22 06:51 History and Physical has been reviewed, including an updated exam of the patient. There are NO changes in the patient's condition. Risks, benefits, and alternatives have been discussed and questions answered. Patient agrees to proceed with procedure.
--- NOTE | 2022-04-04 13:22 | PC.NURSE ---
Report to the Outpatient Waiting Room, entrance under the green pavilion located off [facility], at time _1200am_ on date _04/15/22__. Planned Procedure Time: _2:00pm. Time changes happen often and if your time is changed the preop area will call you the afternoon before. - You and your visitor will be asked to self-screen and do not enter if you have any COVID symptoms. - Only one visitor is requested with a max of two and NO children visitors are allowed at this time. - The patient visitor may be requested to leave or wait in car when not with patient due to distancing restrictions. - A mask is optional within the hospital. Patients may have clear liquids (water, carbonated beverages, clear teas, apple juice) until 3 hours prior to surgery with a maximum of 20 ounces. - No food from midnight until time of surgery - Take the following medications with a SIP of water the morning of surgery: __n/a Medications to discontinue per physician n/a Date to take last dose____n/a Please no make-up, nail khmer, hairspray, perfume, deodorant, or body powder the day of surgery. No jewelry (including any body piercings) or valuables the day of surgery, leave them at home. Please take a shower or bath the night before, or the morning of, surgery with an antibacterial soap. Wear comfortable, loose fitting clothing. Children are encouraged to wear pajamas. - Jewelry must be removed prior to entering the operating room. Rings and piercings that are not removed may be cut off. - The hospital will not accept responsibility for valuables. - Please leave all valuables, including medications, at home the day of surgery. If you are going home after surgery, a licensed pile driver operator helper must drive you home. - NO public transportation without another adult if you receive anesthesia. - We recommend that an adult stay with you for 24 hours following discharge. - We also recommend that you do not drive, make important decision, drink alcoholic beverages, or take any drugs that were not prescribed by your health care provider for at least 24 hours after your discharge time. Follow any additional instructions given to you from your surgeon. If you or anyone in your household have experienced Covid symptoms in the past week, please notify your surgeon or the nurse liaison at the phone number below for possible testing. Telephone instructions given to _DESTINY and asked if any additional questions and then verbalized understanding. Patient advised to call surgeon office or pre surgery nurse liaison [phone] if any additional questions.
--- NOTE | 2022-04-04 13:27 | PC.NURSE ---
PATIENT STATES NO CHANGE IN HEALTH ASSESSMENT SINCE PREOP INTERVIEW ON 02/18/22. NEW PRE PROCEDURE INSTRUCTIONS GIVEN.
--- NOTE | 2022-04-13 07:58 | P.HP_ITS ---
H&P: HPI History of Present Illness Date/Time: 04/13/22 07:58 Chief Complaint: desires permanent sterilization Narrative: this is a 26-year-old female multiparous who desires permanent sterilization via bilateral salpingectomy. She understands this to be permanent irreversible. Risks and benefits of the procedure reviewed including not exclusive of , aspiration pneumonia, bleeding, transfusion, perforation injury to bowel, bladder, ureters, or other internal organs with need for open laparotomy. She had all questions answered. Received the [employer] handout entitled sterilization for men and women. She asked to proceed PMFSH Past Medical History Medical History Anemia Surgical History Surgical History History of appendectomy Family History Family History Other Unknown family medical history Social History Social History Years smoked: 10 Smoking status: Former smoker Tobacco type: cigarettes Second hand tobacco smoke exposure: Yes Smoking end date: 01/21/22 Alcohol intake: never Substance use: never Substance use type: does not use Living arrangements: with family Gender identity (if verbalized by the patient): Female Spiritual care concerns: No Meds Home Medications and Allergies Home Medications Medication Instructions Recorded Confirmed Type hydrocodone 5 mg-acetaminophen 325 1 tablet PO Q8H PRN pain #20 tabs 02/25/22 Rx mg tablet Allergies Allergy/AdvReac Type Severity Reaction Status Date / Time ciprofloxacin [From Cipro] Allergy Swelling Verified 02/18/22 15:10 Penicillins Allergy Other Verified 02/18/22 15:10 Exam Const: General: cooperative, healthy appearing, comfortable, well groomed and average body habitus Orientation/consciousness: oriented to person, oriented to place and oriented to time HENMT: Head: normal to inspection Resp: Effort & Inspection: normal respiratory effort Cardio: Rate: regular rate Rhythm: regular rhythm Heart sounds: S1 normal heart sound present and S2 normal heart sound present GI: Inspection: normal to inspection : External Female Exam: normal external appearance Speculum Exam - Vagina: normal appearance of the vagina Speculum Exam - Cervix: normal appearance of the cervix Bimanual exam- vagina & uterus: non-tender Bima nual Exam- Adnexa, other: normal adnexae Assessment and Plan Assessment and plan (1) Sterilization: Code(s): Z30.2 - Encounter for sterilization Status: Acute Plan laparoscopic bilateral salpingectomy
[2022-04-15] VITALS (7 sets, daily range): BP systolic 101–119; BP diastolic 65–95; PULSE 57–87; RESP 12–16; TEMP 36.4; O2SAT 96–100
--- NOTE | 2022-04-15 07:17 | WPDHPUPDATE1 ---
History and Physical Update Update Date/Time: 04/15/22 07:17 History and Physical has been reviewed, including an updated exam of the patient. There are NO changes in the patient's condition. Risks, benefits, and alternatives have been discussed and questions answered. Patient agrees to proceed with procedure.
[2022-04-15] MEDS: ACETAMINOPHEN 500 MG TABLET 1000 MG PO (11:15)
[2022-04-15] MEDS: LACTATED RINGERS 1,000 ML 30 ML IV CONT (11:30)
[2022-04-15] MEDS: KETOROLAC 15 MG/ML VIAL (*BKC) IV PUSH (11:36)
--- NOTE | 2022-04-15 12:06 | P.PNAN_ITS ---
Anes - Initial Pre Proc Eval Procedure: Operation Date: 04/15/22 12:30 Proposed Procedures p Laparoscopic Bilateral Salpingectomy - Kameron Nuñez MD Date/Time: 04/15/22 12:06 Surgeon: Kameron Nuñez MD Pre Op Diagnosis: desires sterilization Patient Data Age: 26 Gender: F Height: 1.52 m Weight: 66.15 kg Allergies Allergy/AdvReac Type Severity Reaction Status Date / Time ciprofloxacin [From Cipro] Allergy Severe Anaphylaxis Verified 04/15/22 11:19 Penicillins AdvReac Severe lock jaw Verified 04/15/22 11:19 Home Medications Medication Instructions Recorded Confirmed Type hydrocodone 5 mg-acetaminophen 325 1 tablet PO Q8H PRN pain #20 tabs 02/25/22 Rx mg tablet hydrocodone 5 mg-acetaminophen 325 1 tablet PO Q4H PRN pain #30 tabs 04/15/22 Rx mg tablet Patient hx anesthesia problems: none Family hx anesthesia problems: none Results Review: All pre-operative results and documents have been reviewed as part of the pre- operative evaluation. PMFSH Past Medical History Medical History Anemia Surgical History Surgical History History of appendectomy Family History Family History Other Unknown family medical history Social History Social History Years smoked: 10 Smoking status: Former smoker Tobacco type: cigarettes Second hand tobacco smoke exposure: Yes Smoking end date: 01/21/22 Alcohol intake: never Substance use: never Substance use type: does not use Living arrangements: with family Gender identity (if verbalized by the patient): Female Spiritual care concerns: No Anes - Eval Final PreProcedure Day of Procedure 04/15/22 12:06 Patient weight: overweight Heart: regular rate and rhythm Lungs: clear to auscultation Airway: Mallampati scale class II Neurological: alert and oriented Last oral intake: >/= 8 hours ASA classification: II Emergent: no Anesthetic plan: proceed Anesthesia type and monitoring: general ETT and standard monitoring Results Review: All pre-operative results and documents have been reviewed as part of the pre- operative evaluation. Informed Consent: The patient's anesthetic plan and its attendant risks and benefits were discussed with the patient/family/POA. Questions were solicited and answers provided to the satisfaction of the patient/family/POA.
--- NOTE | 2022-04-15 12:49 | P.OP_ITS ---
Procedure Note - Detailed Date of Procedure 04/15/22 Pre-op Diagnosis desires sterilization Post-op Diagnosis Same Procedure Performed Laparoscopic bilateral salpingectomy Surgeon Kameron Nuñez MD Anesthesia General Indications story 6 year female desires permanent sterilization Findings normal-appearing uterus ovaries and tubes Description of Procedure patient was prepped draped in the normal sterile fashion placed in the dorsal lithotomy position. Under excellent general trach anesthesia weighted speculum placed in posterior fornix vagina. Anterior lip of cervix grasped with single- tooth tenaculum the Rios's cannula was inserted the cervix and attached to the single-tooth to be used later for you to be a uterine manipulation. Bladder was drained of clear urine the weighted speculum was removed. Gloves were changed An infraumbilical incision made the Veress needle passed in the abdomen. The filled with CO2 gas [id number]. 5mm trocar was advanced under direct visualization with visualizing scope and no injury seen. The patient placed in Trendelenburg and a suprapubic incision made. The 5mm trocar advanced under direct visualization assuring no injury. A left lower quadrant incision made the 8mm trocar advanced under direct visualization. The left fallopian tube was then grasped with his and using the LigaSure was serially clamped burned and cut to the origin of the uterus and this was clamped and cut and passed off the table. Hemostasis was assured in like fashion the right fallopian tube was grasped and in linear fashion using the LigaSure the tube was clamped cut and removed from the abdomen. Hemostasis was assured in photo documentation was under blood loss was estimated at5cc. The lower sites removed. The gas removed from the abdomen. The upper site removed and the incisions closed with 4-0 Monocryl and glue. The instruments removed from the vagina the patient went recovery in satisfactory condition. Sponge, needle, instrument counts were cor rect. There were no immediate complications Estimated Blood Loss 5 Drains No Packing No Pathology Yes Complications No immediate complications Condition Stable Disposition PACU
[2022-04-15] MEDS: fentaNYL CITRATE INJ (*CRX) 100 MCG/2 ML VIAL 25 MCG IV PUSH ×5 (13:30→14:51)
--- NOTE | 2022-04-15 14:21 | SUR.PHASEII ---
PATIENT ASKED RE: NARCOTICS IN BREASTMILK. PHARMACY CALLED; PHARMACIST NADIA STATED MINIMAL RISK TO INFANT. PATIENT STATED THAT RECOVERING FROM RSV. AFTER DISCUSSION OPTIONS, MOM DECIDED TO FEED FROZEN BREASTMILK (PREVIOUSLY PUMPED) TO AVOID GIVING BREASTMILK WITH NARCOTIC IN IT.
--- NOTE | 2022-04-15 15:35 | SUR.PHASEII ---
WAITING FOR DR. TOYA CAMPOS TO SIGN PRESCRIPTION. PATIENT DRESSED.
== END 2022-04-15 15:45 | disposition home or self-care (01) ==
PROVIDERS: Visit Provider Obstetrics & Gynecology
PROC: (CPT 49320; principal; 2022-04-15 12:30)
DX: Z30.2 Encounter for sterilization (principal); Z87.891 Personal history of nicotine dependence
CPT/HCPCS: 58661; 88302; A9270; J0330; J1100; J1885; J2250; J2405; J2704; J3010; J7120

== ENCOUNTER 2023-01-30 15:00 | Outpatient (CLI) | payer OTHER, SELFPAY ==
[2023-01-30 15:41] LABS: Basophils Percent Auto 0.3 % (0.2-1.2); Eosinophils Absolute Auto 0.1 K/mm3 (0-0.3); Eosinophils Percent Auto 1.4 % (0-4.4); Hematocrit 38.8 % (37.0-47.0); Hemoglobin 12.6 g/dL (12.0-15.0); Immature Granulocyte Absolute 0.01 K/mm3 (0.00-0.031); Immature Granulocyte Percent A 0.2 % (0-0.5); Lymphocytes Absolute Auto 1.76 K/mm3 (0.9-3.2); Lymphocytes Percent Auto 30.6 % (18.3-44.2); Mean Corpuscular HGB Conc 32.5 g/dl (32-36); Mean Corpuscular Hemoglobin 28.1 pg (26-34); Mean Corpuscular Volume 86.4 fl (80-100); Mean Platelet Volume 11.9 fl (7.4-10.4); Monocytes Absolute Auto 0.3 K/mm3 (0.1-0.6); Monocytes Percent Auto 4.5 % (2.6-8.5); Neutrophils Absolute Auto 3.6 K/mm3 (1.3-6.7); Platelet Count Result 160 k/mm3 (150-375); Red Blood Count 4.49 M/mm3 (4.2-5.4); Red Cell Distribution Width 14.4 % (11.5-14.5); White Blood Count 5.8 K/mm3 (4.5-10.0)
== END 2023-01-30 15:01 | disposition home or self-care (01) ==
LOC: ANHSURGERY 15:05
PROVIDERS: Visit Provider Obstetrics & Gynecology
DX: Z01.818 Encounter for other preprocedural examination (principal); R10.2 Pelvic and perineal pain
CPT/HCPCS: 36415; 85025; 86850; 86900; 86901

== ENCOUNTER 2023-02-03 01:05 | Day surgery (SDC) | payer OTHER, SELFPAY ==
[2023-01-27 09:51] VITALS: BMI 24.4
--- NOTE | 2023-01-27 09:55 | PC.NURSE ---
Report to the Outpatient Waiting Room, entrance under the green pavilion located off [facility], at time 7:30 on date 02/03/23. Planned Procedure Time: 9:30. Time changes happen often and if your time is changed the preop area will call you the afternoon before. - You and your visitor will be asked to self-screen and do not enter if you have any COVID symptoms. - A mask is optional within the hospital at this time. Patients may have clear liquids (water, carbonated beverages, clear teas, apple juice) until 3 hours prior to surgery (6:30) with a maximum of 20 ounces. - No food from midnight until time of surgery Take the following medications with a SIP of water the morning of surgery: N/A DO NOT STOP ANY OF YOUR OTHER PRESCRIPTION MEDICATIONS PRIOR TO SURGERY ?EXCEPT THE FOLLOWING Medications to discontinue per physician: N/A Date to take last dose: N/A Please no make-up, nail ivorian, hairspray, perfume, deodorant, or body powder the day of surgery. No jewelry (including any body piercings) or valuables the day of surgery, leave them at home. Please take a shower or bath the night before, or the morning of, surgery with an antibacterial soap. Wear comfortable, loose fitting clothing. - Jewelry must be removed prior to entering the operating room. Rings and piercings that are not removed may be cut off. - The hospital will not accept responsibility for valuables. - Please leave all valuables, including medications, at home the day of surgery. If you are going home after surgery, a licensed bottom hoop driver must drive you home. - NO public transportation without another adult if you receive anesthesia. - We recommend that an adult stay with you for 24 hours following discharge. - We also recommend that you do not drive, make important decision, drink alcoholic beverages, or take any drugs that were not prescribed by your health care provider for at least 24 hours after your discharge time. Follow any additional instructions given to you from your surgeon. If you or anyone in your household have experienced Covid symptoms in the past week, please notify your surgeon or the nurse liaison at the phone number below for possible testing. Telephone instructions given to PT - RANDA RODRIGUEZ and asked if any additional questions and then verbalized understanding. Patient advised to call surgeon office or pre surgery nurse liaison [phone] if any additional questions.
--- NOTE | 2023-01-30 12:29 | P.HP_ITS ---
H&P: HPI History of Present Illness Date/Time: 01/30/23 12:29 Chief Complaint: Vaginal bleeding/dyspareunia/uterine prolapse Narrative: 27-year-old 4 para 4 admitted for robotic hysterectomy and bilateral salpingectomy secondary to vaginal bleeding and pelvic pain and prolapse. She understands this to make her permanently infertile. She has signed the [facility] 90 acknowledgement a receipt of hysterectomy information. Risks and benefits were reviewed including but not exclusive of , aspiration pneumonia, bleeding, transfusion, perforation injury to bowel, bladder, ureters, or other internal organs with need for open laparotomy. She received the [employer] handout entitled hysterectomy as well as de [place] handout. She had all questions answered. She asked to proceed PMFSH Past Medical History Medical History Anemia Surgical History Surgical History History of appendectomy Family History Family History Other Unknown family medical history Social History Social History Smoking packs per day: 1 Smoking cigarettes per day: 20.0 Years smoked: 10 Smoking pack-years: 10.00 Smoking status: Current every day smoker Tobacco type: cigarettes and e-cigarettes/vaping Second hand tobacco smoke exposure: Yes Smoking end date: 01/21/22 Additional smoking assessment comments: QUIT CIGARETTES 01/2022, NOW VAPING Alcohol intake: never Substance use: current Substance use type: marijuana Living arrangements: with family Gender identity (if verbalized by the patient): Female Spiritual care concerns: No Meds Home Medications and Allergies Home Medications Medication Instructions Recorded Confirmed Type No Home Medications 01/27/23 01/27/23 History Allergies Allergy/AdvReac Type Severity Reaction Status Date / Time ciprofloxacin [From Cipro] Allergy Severe Anaphylaxis Verified 01/27/23 09:50 Penicillins AdvReac Severe lock jaw Verified 01/27/23 09:50 Exam Const: General: cooperative, healthy appearing, comfortable and average body habitus Orientation/consciousness: oriented to person, oriented to place and oriented to time HENMT: Head: normal to inspection Resp: Effort & Inspection: normal respiratory effort Cardio: Rate: regular rate Rhythm: regular rhythm Heart sounds: S1 normal heart sound present and S2 normal heart sound present GI: Inspection: normal to inspection : Speculum Exam - Vagina: normal appearance of the vagina Speculum Exam - Cervix: normal appearance of the cervix (Second-degree prolapse) Bimanual exam- vagina & uterus: enlarged Bimanual Exam- Adnexa, other: normal adnexae Assessment and Plan Assessment and plan (1) Pelvic pain: Code(s): R10.2 - Pelvic and perineal pain Status: Acute (2) Excessive bleeding: Code(s): R58 - Hemorrhage, not elsewhere classified Status: Acute (3) Uterine prolapse: Code(s): N81.4 - Uterovaginal prolapse, unspecified Status: Acute Plan Robotic total vaginal hysterectomy and bilateral salpingectomy
[2023-02-03] VITALS (12 sets, daily range): BP systolic 106–124; BP diastolic 61–86; PULSE 55–103; RESP 10–20; TEMP 36.1–36.6; O2SAT 93–100
--- NOTE | 2023-02-03 06:13 | WPDHPUPDATE1 ---
History and Physical Update Update Date/Time: 02/03/23 06:13 History and Physical has been reviewed, including an updated exam of the patient. There are NO changes in the patient's condition. Risks, benefits, and alternatives have been discussed and questions answered. Patient agrees to proceed with procedure.
--- NOTE | 2023-02-03 08:22 | WPDANESEPPF ---
Anes - Initial Pre Proc Eval Procedure: Operation Date: 02/03/23 09:30 Proposed Procedures p Robotic Assisted Total Vaginal Hysterectomy - Kameron Nuñez MD Date/Time: 02/03/23 08:22 Surgeon: Kameron Nuñez MD Pre Op Diagnosis: pelvic pain, excessive bleeding, uterine prolapse Patient Data Age: 27 Gender: F Height: 1.52 m Weight: 53.5 kg Last Vital Signs Temp 97.9 F 02/03/23 07:45 Pulse 58 L 02/03/23 07:45 Resp 16 02/03/23 07:45 BP 116/74 02/03/23 07:45 Pulse Ox 100 02/03/23 07:45 O2 Del Method Room Air 02/03/23 07:45 Allergies Allergy/AdvReac Type Severity Reaction Status Date / Time ciprofloxacin [From Cipro] Allergy Severe Anaphylaxis Verified 02/03/23 07:53 Penicillins AdvReac Severe lock jaw Verified 02/03/23 07:53 Home Medications Medication Instructions Recorded Confirmed Type hydrocodone 5 mg-acetaminophen 325 1 tablet PO Q4H PRN pain #20 tabs 02/03/23 Rx mg tablet Patient hx anesthesia problems: none Family hx anesthesia problems: none Results Review: All pre-operative results and documents have been reviewed as part of the pre-operative evaluation. [facility] Past Medical History Medical History Anemia Surgical History Surgical History History of appendectomy Family History Family History Other Unknown family medical history Social History Social History Smoking packs per day: 1 Smoking cigarettes per day: 20.0 Years smoked: 10 Smoking pack-years: 10.00 Smoking status: Current every day smoker Tobacco type: cigarettes and e-cigarettes/vaping Second hand tobacco smoke exposure: Yes Smoking end date: 01/21/22 Additional smoking assessment comments: QUIT CIGARETTES 01/2022, NOW VAPING Alcohol intake: never Substance use: current Substance use type: marijuana Living arrangements: with family Gender identity (if verbalized by the patient): Female Spiritual care concerns: No Anes - Eval Final PreProcedure Day of Procedure 02/03/23 08:22 Patient weight: normal Heart: regular rate and rhythm Lungs: clear to auscultation Airway: Mallampati scale class II Neurological: alert and oriented Last oral intake: >/= 8 hours ASA classification: II Emergent: no Anesthetic plan: proceed Anesthesia type and monitoring: general ETT, monitored anesthesia care and standard monitoring Results Review: All pre-operative results and documents have been reviewed as part of the pre-operative evaluation. Informed Consent: The patient's anesthetic plan and its attendant risks and benefits were discussed with the patient/family/POA. Questions were solicited and answers provided to the satisfaction of the patient/family/POA.
[2023-02-03] MEDS: ACETAMINOPHEN 500 MG TABLET 1000 MG PO (08:24)
[2023-02-03] MEDS: KETOROLAC 15 MG/ML VIAL (*BKC) IV PUSH (08:24)
[2023-02-03] MEDS: LACTATED RINGERS 1,000 ML 30 ML IV CONT ×3 (08:25→11:51)
[2023-02-03] MEDS: ceFAZolin 2 GM/D5W 50 ML 2 GM/50 ML BAG IVPB (09:13)
--- NOTE | 2023-02-03 10:19 | W.PM.PROC2 ---
Procedure Note - Detailed Date of Procedure 02/03/23 Pre-op Diagnosis pelvic pain, excessive bleeding, uterine prolapse Post-op Diagnosis Same Procedure Performed Robotic total vaginal hysterectomy Surgeon Kameron Nuñez MD Anesthesia General Indications A 27-year-old female status post tubal ligation with the uterine prolapse pain Findings Prolapsed uterus. Tubes were surgically absent. Normal-appearing ovaries Description of Procedure Patient was prepped draped sterile fashion placed in dorsal lithotomy position trach anesthesia placed in posterior fornix cervix grasped with single-tooth tenaculum. Uterus sounded to 10cm. Serial dilatation fragmented performed followed by passes the 8 ANIRUDH and 3 cold cup. Next 16 [place] catheter was placed and bladder drained of clear. The weighted speculum single-tooth removed and the gloves were changed. Supraumbilical incision made the Veress needle passed in the abdomen. Abdomen filled with CO2 gas [id number]. The 8mm trocar advanced in the abdomen. Downside visualized no injury seen. Gas reattached. Patient placed in turn in 20? Trendelenburg. Right left lateral quadrant incision made and the 8mm trocars advanced under direct visualization assuring no injury. Right upper quadrant incision made the 8mm trocar advanced under direct visualization assuring no injury. Robot was docked. Attention was turned to the console. The left round ligament was grasped, burned, cut. Anterior the left round ligament was grasped, burned, cut and a good bladder flap formed by sharply dissecting the peritoneum and reflecting the bladder caudally away from the cervix and uterus to the opposite ligament. This was clamped, burned, cut. The left fallopian tube and right fallopian tube was surgically absent. Conserving the left ovary, the utero-ovarian ligament on the left was clamped, burned, cut and brought to the level of previously cut round ligament. Conserving the right ovary the utero-ovarian ligament was clamped, burned, cut and brought to the level of previously cut round ligament. The cardinal broad ligaments on the left were serially skeletonized clamping burning cutting and hugging the cervix uterus until the uterine vessels could be seen on the left these were individually clamped, burned, cut. Similarly on the right the cardinal and broad ligaments were clamped, burned, cut and brought down the lateral edge of the cervix and uterus until the uterine vessels could be seen. These were individually clamped, burned, cut. Excellent blanching the uterus was noted. The colpotomy incision was made in the cervix uterus were removed through the vagina. The vagina was then closed with continuous running 0V lock from lateral edge to lateral edge back to the midline. Irrigation undertaken until clear and [place] term placed over the raw surface area. Blood loss was estimated at [id number]. The robot was undocked. The gas removed from the abdomen. The trocars removed and the incisions closed with 4 Monocryl and glue. The patient was awakened went recovery in satisfactory condition. All sponge, needle, instrument counts were correct. There were no immediate complications noted Estimated Blood Loss 50 Drains No Packing No Pathology Yes Complications No immediate complications Condition Stable
--- NOTE | 2023-02-03 10:24 | PM.DS ---
DS: Admitting Diagnosis Discharge Date 02/03/2023 Admitting Diagnosis Uterine prolapse/pelvic pain/excessive bleeding DS: Discharge Diagnosis Discharge Diagnosis (1) Uterine prolapse: Code(s): N81.4 - Uterovaginal prolapse, unspecified Status: Acute (2) Excessive bleeding: Code(s): R58 - Hemorrhage, not elsewhere classified Status: Acute (3) Pelvic pain: Code(s): R10.2 - Pelvic and perineal pain Status: Acute DS: Summary Hospital Course Reason for hospitalization: Patient was admitted on 02/03/2023 for robotic hysterectomy. Hospital Course: Patient underwent successful biotic hysterectomy 02/03/2023 hospital course unremarkable. She remained afebrile. She was up, voiding without difficulty, ambulating, eating regular diet, and generally without complaints Time Spent with Patient Time attestation: Total time spent providing and/or coordinating discharge services: Exam Const: General: cooperative and healthy appearing Nutritional Appearance: average body habitus Orientation/consciousness: oriented to person, oriented to place and oriented to time HENMT: Head: normal to inspection Resp: Effort & Inspection: normal respiratory effort Cardio: Rate: regular rate Rhythm: regular rhythm Heart sounds: S1 normal heart sound present and S2 normal heart sound present GI: Inspection: normal to inspection and incision (Clean dry and intact) Discharge Plan Discharge Patient Disposition: Home, Self-Care Patient Instructions: Laparoscopic Hysterectomy (DC), Pain Management After Surgery (DC) Stand Alone Forms: General Discharge Instructions Follow-up/Referrals: Kameron Simpson MD [Physician] - Discharge Medications: New hydrocodone-acetaminophen 5-325 mg tablet 1 tablet PO Q4H PRN (Reason: pain) Qty: 20 0RF docusate sodium 100 mg Capsule 100 mg PO BID 0RF ibuprofen 600 mg Tablet 600 mg PO Q6H PRN (Reason: Cramping) 0RF simethicone 80 mg Tablet,Chewable 80 mg PO Q2H PRN (Reason: Gas) 0RF ondansetron HCl 4 mg tablet 4 mg PO Q6H PRN (Reason: nausea and vomiting) Qty: 20 0RF oxycodone-acetaminophen [Percocet] 5-325 mg tablet 1 - 2 tablet PO Q6H PRN (Reason: pain) Qty: 20 0RF
[2023-02-03] MEDS: ONDANSETRON INJ 4 MG/2 ML VIAL IV PUSH (11:38)
[2023-02-03] MEDS: fentaNYL CITRATE INJ (*CRX) 100 MCG/2 ML VIAL 25 MCG IV PUSH ×4 (11:41→11:52)
[2023-02-03] MEDS: SCOPOLAMINE 1.5 MG PATCH TRANSDERM (12:08)
[2023-02-03] MEDS: diphenhydrAMINE HCl INJ 50 MG/ML VIAL 12.5 MG IV PUSH (12:12)
--- NOTE | 2023-02-03 12:30 | PC.NURSE ---
PT arrived on unit via bed accompanied by spouse and taken to room 288. PT oriented to room and surrounding area. PT introductions made and plan of care discussed per post op tip puncher surgery, pain management, daily care activities. PT and spouse both recipients of such instructions and no barriers to learning identified at this time. PT received such instructions via one to one discussion and demonstrations. PT verbalized understanding of such care.
[2023-02-03] MEDS: KETOROLAC 30 MG/ML VIAL (*BKC) IV PUSH (12:53)
[2023-02-03] MEDS: DEXTROSE 5%/LACTATED RINGERS 1,000 ML 125 ML IV CONT (12:53)
[2023-02-03] MEDS: SIMETHICONE 80 MG TAB.CHEW PO (16:10)
[2023-02-03] MEDS: DOCUSATE SODIUM 100 MG CAPSULE PO (16:11)
[2023-02-03] MEDS: HYDROcodone/acetaminophen (*CRX) 10-325 MG TABLET 1 TAB PO (16:12)
== END 2023-02-03 19:10 | disposition home or self-care (01) ==
LOC: ANHSURGERY 07:28 → ANHOB2 12:22
PROVIDERS: Visit Provider Obstetrics & Gynecology
PROC: (CPT 58550; principal; 2023-02-03 09:30)
DX: N81.4 Uterovaginal prolapse, unspecified (principal); N72 Inflammatory disease of cervix uteri; N93.9 Abnormal uterine and vaginal bleeding, unspecified; N94.10 Unspecified dyspareunia; D64.9 Anemia, unspecified; F12.90 Cannabis use, unspecified, uncomplicated; F17.290 Nicotine dependence, other tobacco product, uncomplicated
CPT/HCPCS: 58550; S2900; 88307; 99199; A9270; J0690; J1100; J1170; J1200; J1885; J2250; J2405; J2704; J3010; J7030; J7120; J7121

== ENCOUNTER 2023-07-17 10:40 | Outpatient (CLI) | payer OTHER, SELFPAY ==
[2023-07-17 11:00] LABS: Basophils Percent Auto 0.7 % (0.2-1.2); Eosinophils Absolute Auto 0.1 K/mm3 (0-0.3); Eosinophils Percent Auto 2.5 % (0-4.4); Hematocrit 41.2 % (37.0-47.0); Hemoglobin 13.4 g/dL (12.0-15.0); Immature Granulocyte Absolute 0.01 K/mm3 (0.00-0.031); Immature Granulocyte Percent A 0.2 % (0-0.5); Lymphocytes Absolute Auto 1.22 K/mm3 (0.9-3.2); Lymphocytes Percent Auto 27.4 % (18.3-44.2); Mean Corpuscular HGB Conc 32.5 g/dl (32-36); Mean Corpuscular Hemoglobin 28.2 pg (26-34); Mean Corpuscular Volume 86.7 fl (80-100); Mean Platelet Volume 11.1 fl (7.4-10.4); Monocytes Absolute Auto 0.4 K/mm3 (0.1-0.6); Monocytes Percent Auto 8.1 % (2.6-8.5); Neutrophils Absolute Auto 2.7 K/mm3 (1.3-6.7); Neutrophils Percent Auto 61.1 % (45.5-73.1); Platelet Count Result 203 k/mm3 (150-375); Red Blood Count 4.75 M/mm3 (4.2-5.4); Red Cell Distribution Width 13.7 % (11.5-14.5); White Blood Count 4.5 K/mm3 (4.5-10.0)
[2023-07-17 13:12] LABS: Erythrocyte Sedimentation Rate 14 mm/hr (0-20)
[2023-07-17 14:37] LABS: Alanine Aminotransferase 13 U/L (6-35); Albumin Level 4.8 g/dL (3.5-5.1); Alkaline Phosphatase 63 U/L (38-126); Anion Gap 9 mmol/L (8-16); Aspartate Amino Transferase 23 U/L (14-36); Bilirubin,Total 0.4 mg/dL (0.2-1.3); Blood Urea Nitrogen 4 mg/dL (7-17); CRP 0.9 mg/dL (<1.0); Calcium 9.3 mg/dL (8.4-10.2); Carbon Dioxide 23 mmol/L (22-30); Chloride 108 mmol/L (98-107); Estimated Glomerular Filt Rate > 60; Glucose 88 mg/dL (65-110); Lactate Dehydrogenase 146 U/L (120-246); Potassium 3.7 mmol/L (3.4-5.0); Sodium 140 mmol/L (137-145)
== END 2023-07-17 10:41 | disposition home or self-care (01) ==
PROVIDERS: Visit Provider Internal Medicine Hematology & Oncology
DX: D72.829 Elevated white blood cell count, unspecified (principal)
CPT/HCPCS: 36415; 80053; 83615; 85025; 85652; 86140

== ENCOUNTER 2023-07-21 14:10 | Outpatient (CLI) | payer OTHER, SELFPAY | END 2023-07-21 14:11 | disposition home or self-care (01) | LOC: ANHLAB 14:15 | PROVIDERS: Visit Provider Internal Medicine Hematology & Oncology | DX: D72.829 Elevated white blood cell count, unspecified (principal) | CPT/HCPCS: 88184 ==

== ENCOUNTER 2023-08-01 13:55 | Outpatient (CLI) | payer OTHER, SELFPAY ==
--- NOTE | ~2023-08-01 | CT_ITS ---
EXAMINATION: CT chest abdomen pelvis w con DATE: 08/01/2023 14:25 INDICATION: Left-sided pain, weight loss TECHNIQUE: Transaxial computed tomographic images of the chest, abdomen, and pelvis were obtained aft er the administration of 100 cc of Omnipaque 350 intravenous contrast. The dose-length product (DLP) was 260.42 mGy-cm. Automated exposure control and iterative reconstruction technique were employed. COMPARISON: None FINDINGS: CHEST CT: There is mild dependent atelectasis of the lungs. No pleural effusion or pneumothorax. The lungs are free of focal airspace opacities. No pathologically enlarged thoracic lymph nodes are identified. The heart size is normal. ABDOMEN/PELVIS CT: The liver is unremarkable. The spleen, pancreas, gallbladder, and adrenal glands are normal. The kidn eys are unremarkable. No pathologically enlarged abdominal or pelvic lymph nodes are identified. No f ree intraperitoneal gas or evidence of bowel obstruction. IMPRESSION: 1. No CT correlate for the patient's symptoms. Reviewed, dictated and finalized at location F.
== END 2023-08-01 13:56 | disposition home or self-care (01) ==
LOC: ANHIMG 13:58
PROVIDERS: Visit Provider Internal Medicine Hematology & Oncology
DX: R10.9 Unspecified abdominal pain (principal)
CPT/HCPCS: 71260; 74177; Q9967